=== PATIENT | male | born 1975 | race Two or more races ===

== ENCOUNTER 2016-11-24 23:16 | Emergency (ER) | payer OTHER ==
[~2016-11-24] VITALS: Ht 177.8 cm; Wt 83.9 kg
[2016-11-24 23:16] VITALS: BP 152/106
--- NOTE | 2016-11-24 23:55 | NUR ---
ACI AND PRESCRIPTION GIVEN TO OFFICER TALITA#[id number]
== END 2016-11-24 23:58 ==
LOC: ER 23:17
DX: K64.9 Unspecified hemorrhoids (principal)
CPT/HCPCS: A4606; Z7610